=== PATIENT | female | born 1995 | race Caucasian/White ===

== ENCOUNTER 2018-07-21 14:54 | Inpatient (IN) | payer OTHER ==
[~2018-07-21 14:54] MED LIST: SEVOFLURANE 15 MIN
[2018-07-21] MEDS ORDERED: DOCUSATE SODIUM 100 MG CAP PO (16:00)
[2018-07-21] MEDS ORDERED: LORAZEPAM 2 MG INJ IV (16:00)
[2018-07-21] MEDS ORDERED: NA PHOSPHATE/BIPHOS 133 ML ENEMA PR (16:00)
[2018-07-21] MEDS ORDERED: MAGNESIUM HYDROXIDE 30ML CUP PO (16:00)
[2018-07-21] MEDS ORDERED: NACL 0.9% 3 ML SYG IV (16:00)
[2018-07-21] MEDS ORDERED: ACETAMINOPHEN 325 MG TAB PO (16:00)
[2018-07-21] MEDS ORDERED: ALBUTEROL/IPRATROPIUM (NEB) 3 ML AMP HHN (16:00)
[2018-07-21] MEDS ORDERED: NITROGLYCERIN (SL) 0.4 MG TAB SL (16:00)
[2018-07-21] MEDS ORDERED: hydrALAzine 20 MG INJ IV (16:00)
[2018-07-21] MEDS ORDERED: VANCOMYCIN IV PER PHARMACY XX (16:00)
[2018-07-21 16:30] LABS: INR 1.13; PROTIME 14.7 Sec (11.9-14.9); PT RATIO 1.1
[2018-07-21 16:31] LABS: PARTIAL THROMBOPLASTIN TIME 37.7 Sec (23.0-35.0)
[2018-07-21] MEDS: SOD CHLORIDE 0.9% 1,000 ML IV (16:41)
[2018-07-21 16:58] LABS: FREE T4 (FREE THYROXINE) 1.34 ng/dl (0.79-2.35)
[2018-07-21] MEDS: morphine 2 MG INJ IV (17:21)
[2018-07-21] MEDS: PIPER-TAZO 3.375 GM IV (PMX) 100 ML IVPB (17:21)
[2018-07-21] MEDS: VANCOMYCIN 1.5 GM in SOD CHLORIDE 0.9% 250 ML IVPB (18:09)
[2018-07-21] MEDS ORDERED: MIDAZOLAM 1 MG/ML 2 ML INJ (21:08)
[2018-07-21] MEDS ORDERED: FENTAnyl 50 MCG/ML VIAL (21:08)
[2018-07-21] MEDS ORDERED: LIDOCAINE 2% (SDV) 5 ML INJ (21:30)
[2018-07-21] MEDS ORDERED: PROPOFOL 20 ML (21:30)
[2018-07-21] MEDS: POLYMYXIN/BACITRACIN 1L IRRIG IRR (21:58)
[2018-07-21] MEDS ORDERED: FENTAnyl 50 MCG/ML VIAL IV (22:00)
[2018-07-21] MEDS ORDERED: METOCLOPRAMIDE 10 MG INJ IV (22:00)
[2018-07-21] MEDS ORDERED: MEPERIDINE 25 MG INJ IV (22:00)
[2018-07-21] MEDS ORDERED: HYDROmorphONE 1 MG/5 ML IV SYRINGE IV (22:00)
[2018-07-21] MEDS ORDERED: DIPHENHYDRAMINE 50 MG INJ IV (22:00)
[2018-07-21] MEDS ORDERED: KETOROLAC 30 MG INJ IV (22:00)
[2018-07-21] MEDS ORDERED: MIDAZOLAM 1 MG/ML 2 ML INJ IV (22:00)
[2018-07-21] MEDS: HYDROmorphONE 1 MG/5 ML IV SYRINGE IV ×2 (22:03→22:12)
[2018-07-21] MEDS: ONDANSETRON 4 MG INJ IV (22:03)
[2018-07-22] MEDS: PIPER-TAZO 3.375 GM IV (PMX) 100 ML IVPB ×5 (00:27→23:34)
[2018-07-22] MEDS: SOD CHLORIDE 0.9% 1,000 ML IV ×3 (01:12→18:17)
[2018-07-22] MEDS: morphine 2 MG INJ IV ×2 (01:36→05:57)
[2018-07-22] MEDS: VANCOMYCIN 1 GM 250 ML IVPB ×3 (02:00→18:15)
[2018-07-22] MEDS: PANTOPRAZOLE (EC) 40 MG TAB PO (05:57)
[2018-07-22] MEDS: ONDANSETRON 4 MG INJ IV (06:35)
[2018-07-22 07:20] LABS: ADD MAN DIFF? NO
[2018-07-22 07:28] LABS: BASOPHIL # 0.1 10^3/ul (0.0-0.1); BASOPHILS % 0.4 % (0.0-2.0); EOSINOPHILS # 0.1 10^3/ul (0.0-0.5); EOSINOPHILS % 0.7 % (0.0-7.0); HEMATOCRIT 34.1 % (37.0-47.0); HEMOGLOBIN 11.3 g/dl (12.0-16.0); LYMPHOCYTES # 2.3 10^3/ul (0.8-2.9); LYMPHOCYTES % 14.6 % (15.0-51.0); MEAN CORPUSCULAR HEMOGLOBIN 29.1 pg (29.0-33.0); MEAN CORPUSCULAR HGB CONC 33.1 g/dl (32.0-37.0); MEAN CORPUSCULAR VOLUME 87.9 fl (82.0-101.0); MEAN PLATELET VOLUME 10.9 fl (7.4-10.4); MONOCYTE # 1.4 10^3/ul (0.3-0.9); MONOCYTES % 8.8 % (0.0-11.0); NEUTROPHIL # 11.8 10^3/ul (1.6-7.5); NEUTROPHILS % 74.9 % (39.0-77.0); PLATELET COUNT 253 10^3/UL (140-415); RED BLOOD COUNT 3.88 10^6/ul (4.20-5.40); RED CELL DISTRIBUTION WIDTH 12.8 % (11.5-14.5)
[2018-07-22 07:28] LABS: WHITE BLOOD COUNT 15.7 10^3/ul (4.8-10.8)
[2018-07-22 07:40] LABS: ANION GAP 10 (5-13); BLOOD UREA NITROGEN 5 mg/dl (7-20); CALCIUM 8.4 mg/dl (8.4-10.2); CARBON DIOXIDE 24 mmol/L (21-31); CHLORIDE 105 mmol/L (97-110); CHOL/HDL RATIO 4.8 RATIO; CHOLESTEROL 131 mg/dl (100-200); CREATININE 0.59 mg/dl (0.44-1.00); Estimated GFR > 60 mL/min (>60); GLUCOSE 97 mg/dl (70-220); HDL CHOLESTEROL 27 mg/dl (33-83); LDL CHOLESTEROL,CALCULATED 83 mg/dl; MAGNESIUM 1.8 mg/dl (1.7-2.5); POTASSIUM 3.5 mmol/L (3.5-5.1); SODIUM 139 mmol/L (135-144); TRIGLYCERIDES 104 mg/dl (0-149)
[2018-07-22] MEDS: HYDROCODONE/APAP (5/325) TAB PO ×2 (10:53→17:06)
[2018-07-22 17:58] LABS: VANCOMYCIN,TROUGH 13.2 ug/ml (10.0-20.0)
[2018-07-23] MEDS: VANCOMYCIN 1 GM 250 ML IVPB ×3 (02:22→19:04)
[2018-07-23] MEDS: ONDANSETRON 4 MG INJ IV (04:07)
[2018-07-23] MEDS: HYDROCODONE/APAP (5/325) TAB PO ×3 (04:19→23:40)
[2018-07-23] MEDS: PANTOPRAZOLE (EC) 40 MG TAB PO (06:01)
[2018-07-23] MEDS: PIPER-TAZO 3.375 GM IV (PMX) 100 ML IVPB ×4 (06:01→23:04)
[2018-07-23] MEDS: SOD CHLORIDE 0.9% 1,000 ML IV ×3 (07:55→23:04)
[2018-07-23 08:59] LABS: ADD MAN DIFF? NO
[2018-07-23 09:03] LABS: HEMATOCRIT 33.4 % (37.0-47.0); LYMPHOCYTES % 18.8 % (15.0-51.0); MEAN CORPUSCULAR HGB CONC 32.9 g/dl (32.0-37.0); MEAN CORPUSCULAR VOLUME 88.1 fl (82.0-101.0); MEAN PLATELET VOLUME 10.9 fl (7.4-10.4); MONOCYTES % 9.7 % (0.0-11.0); NEUTROPHILS % 68.1 % (39.0-77.0); PLATELET COUNT 247 10^3/UL (140-415); RED BLOOD COUNT 3.79 10^6/ul (4.20-5.40); RED CELL DISTRIBUTION WIDTH 12.8 % (11.5-14.5)
[2018-07-23 09:03] LABS: WHITE BLOOD COUNT 9.7 10^3/ul (4.8-10.8)
[2018-07-23 09:04] LABS: BASOPHIL # 0.1 10^3/ul (0.0-0.1); BASOPHILS % 0.5 % (0.0-2.0); EOSINOPHILS # 0.2 10^3/ul (0.0-0.5); LYMPHOCYTES # 1.8 10^3/ul (0.8-2.9); MONOCYTE # 0.9 10^3/ul (0.3-0.9); NEUTROPHIL # 6.6 10^3/ul (1.6-7.5)
[2018-07-23 09:17] LABS: ANION GAP 8 (5-13); BLOOD UREA NITROGEN 6 mg/dl (7-20); CALCIUM 8.7 mg/dl (8.4-10.2); CARBON DIOXIDE 27 mmol/L (21-31); CHLORIDE 109 mmol/L (97-110); CREATININE 0.86 mg/dl (0.44-1.00); Estimated GFR > 60 mL/min (>60); GLUCOSE 87 mg/dl (70-220); POTASSIUM 3.5 mmol/L (3.5-5.1); SODIUM 144 mmol/L (135-144)
[2018-07-23 09:30] LABS: MAGNESIUM 2.1 mg/dl (1.7-2.5)
[2018-07-23 09:30] LABS: PHOSPHORUS 3.9 mg/dl (2.5-4.9)
[2018-07-23] MEDS: SODIUM HYPOCHLORITE (1/40) 1 APPLIC BTL IRR (23:40)
[2018-07-24] MEDS: VANCOMYCIN 1 GM 250 ML IVPB ×2 (02:22→10:49)
[2018-07-24] MEDS: PIPER-TAZO 3.375 GM IV (PMX) 100 ML IVPB (05:20)
[2018-07-24] MEDS: PANTOPRAZOLE (EC) 40 MG TAB PO (05:20)
[2018-07-24 06:19] LABS: ADD MAN DIFF? NO
[2018-07-24 06:31] LABS: BASOPHILS % 0.5 % (0.0-2.0); EOSINOPHILS # 0.2 10^3/ul (0.0-0.5); EOSINOPHILS % 3.1 % (0.0-7.0); HEMATOCRIT 35.1 % (37.0-47.0); HEMOGLOBIN 11.2 g/dl (12.0-16.0); LYMPHOCYTES # 1.9 10^3/ul (0.8-2.9); LYMPHOCYTES % 29.2 % (15.0-51.0); MEAN CORPUSCULAR HEMOGLOBIN 28.6 pg (29.0-33.0); MEAN CORPUSCULAR HGB CONC 31.9 g/dl (32.0-37.0); MEAN CORPUSCULAR VOLUME 89.8 fl (82.0-101.0); MEAN PLATELET VOLUME 11.1 fl (7.4-10.4); MONOCYTE # 0.7 10^3/ul (0.3-0.9); NEUTROPHIL # 3.7 10^3/ul (1.6-7.5); NEUTROPHILS % 56.1 % (39.0-77.0); PLATELET COUNT 233 10^3/UL (140-415); RED BLOOD COUNT 3.91 10^6/ul (4.20-5.40); RED CELL DISTRIBUTION WIDTH 12.8 % (11.5-14.5)
[2018-07-24 06:31] LABS: WHITE BLOOD COUNT 6.5 10^3/ul (4.8-10.8)
[2018-07-24 07:29] LABS: ANION GAP 11 (5-13); BLOOD UREA NITROGEN 4 mg/dl (7-20); CALCIUM 8.6 mg/dl (8.4-10.2); CARBON DIOXIDE 24 mmol/L (21-31); CHLORIDE 111 mmol/L (97-110); CREATININE 0.97 mg/dl (0.44-1.00); Estimated GFR > 60 mL/min (>60); GLUCOSE 82 mg/dl (70-220); POTASSIUM 3.5 mmol/L (3.5-5.1); SODIUM 146 mmol/L (135-144)
[2018-07-24] MEDS: ONDANSETRON 4 MG INJ IV (08:26)
[2018-07-24] MEDS: SODIUM HYPOCHLORITE (1/40) 1 APPLIC BTL IRR (10:52)
[2018-07-24] MEDS: SOD CHLORIDE 0.9% 1,000 ML IV (13:44)
[2018-07-24] MEDS: HYDROCODONE/APAP (5/325) TAB PO (13:46)
== END 2018-07-24 16:19 | disposition home or self-care (01) | DRG 854 ==
LOC: PP2 14:54
PROVIDERS: Internal Medicine
PROC: 0D9Q0ZZ Drainage of Anus, Open Approach (ICD-10-PCS; principal; 2018-07-21 20:50)
PROC: 0D9Q3ZX Drainage of Anus, Percutaneous Approach, Diagnostic (ICD-10-PCS; 2018-07-21 20:50)
PROC: 0DJD8ZZ Inspection of Lower Intestinal Tract, Via Natural or Artificial Opening Endoscopic (ICD-10-PCS; 2018-07-21 20:50)
DX: A41.9 Sepsis, unspecified organism (principal); K61.0 Anal abscess; L40.0 Psoriasis vulgaris; E66.9 Obesity, unspecified; B96.20 Unspecified Escherichia coli [E. coli] as the cause of diseases classified elsewhere; B95.4 Other streptococcus as the cause of diseases classified elsewhere; Z68.30 Body mass index [BMI] 30.0-30.9, adult; Z68.31 Body mass index [BMI] 31.0-31.9, adult
CPT/HCPCS: 80048; 80061; 80202; 83036; 83735; 84100; 84439; 84443; 85025; 85610; 85730; 87040; 87070

== ENCOUNTER 2018-08-15 01:16 | Inpatient (IN) | payer OTHER ==
[2018-08-15 03:48] LABS: ADD MAN DIFF? NO
[2018-08-15] MEDS: ONDANSETRON 4 MG INJ IV ×2 (03:52→12:43)
[2018-08-15] MEDS: morphine 4 MG/ML VIAL IV (03:53)
[2018-08-15] MEDS: SOD CHLORIDE 0.9% 500 ML IV (03:54)
[2018-08-15 04:32] LABS: BASOPHIL # 0.1 10^3/ul (0.0-0.1); BASOPHILS % 0.6 % (0.0-2.0); EOSINOPHILS # 0.2 10^3/ul (0.0-0.5); EOSINOPHILS % 1.9 % (0.0-7.0); HEMATOCRIT 36.8 % (37.0-47.0); HEMOGLOBIN 12.4 g/dl (12.0-16.0); LYMPHOCYTES # 2.8 10^3/ul (0.8-2.9); LYMPHOCYTES % 27.3 % (15.0-51.0); MEAN CORPUSCULAR HEMOGLOBIN 28.9 pg (29.0-33.0); MEAN CORPUSCULAR HGB CONC 33.7 g/dl (32.0-37.0); MEAN CORPUSCULAR VOLUME 85.8 fl (82.0-101.0); MEAN PLATELET VOLUME 11.7 fl (7.4-10.4); MONOCYTE # 0.7 10^3/ul (0.3-0.9); MONOCYTES % 6.7 % (0.0-11.0); NEUTROPHIL # 6.5 10^3/ul (1.6-7.5); PLATELET COUNT 236 10^3/UL (140-415); RED BLOOD COUNT 4.29 10^6/ul (4.20-5.40); RED CELL DISTRIBUTION WIDTH 13.3 % (11.5-14.5)
[2018-08-15 04:32] LABS: WHITE BLOOD COUNT 10.2 10^3/ul (4.8-10.8)
[2018-08-15 06:01] LABS: ANION GAP 9 (5-13); BLOOD UREA NITROGEN 10 mg/dl (7-20); CALCIUM 9.6 mg/dl (8.4-10.2); CARBON DIOXIDE 27 mmol/L (21-31); CHLORIDE 106 mmol/L (97-110); CREATININE 0.66 mg/dl (0.44-1.00); Estimated GFR > 60 mL/min (>60); GLUCOSE 93 mg/dl (70-220); POTASSIUM 3.7 mmol/L (3.5-5.1); SODIUM 142 mmol/L (135-144)
[2018-08-15] MEDS: IOHEXOL 100 ML (06:09)
[2018-08-15] MEDS: SOD CHLORIDE 0.9% 100 ML (06:09)
[2018-08-15] MEDS: HYDROCODONE/APAP (10/325) TAB PO (06:22)
[2018-08-15] MEDS ORDERED: ONDANSETRON 4 MG INJ IV (08:30)
[2018-08-15] MEDS ORDERED: ACETAMINOPHEN 325 MG TAB PO (09:30)
[2018-08-15] MEDS ORDERED: NACL 0.9% 3 ML SYG IV (09:30)
[2018-08-15] MEDS ORDERED: VANCOMYCIN IV PER PHARMACY XX (09:30)
[2018-08-15] MEDS: CEFTRIAXONE 1 GM/50 ML (PMX) 50 ML IVPB (10:11)
[2018-08-15 11:05] LABS: INR 0.97
[2018-08-15 11:06] LABS: PARTIAL THROMBOPLASTIN TIME 33.8 Sec (23.0-35.0)
[2018-08-15] MEDS: VANCOMYCIN 1.5 GM in SOD CHLORIDE 0.9% 250 ML IVPB (12:14)
[2018-08-15] MEDS: HYDROCODONE/APAP (5/325) TAB PO ×2 (14:43→21:32)
[2018-08-15] MEDS: VANCOMYCIN 1 GM 250 ML IVPB (20:21)
[2018-08-16] MEDS: VANCOMYCIN 1 GM 250 ML IVPB ×2 (04:29→12:00)
[2018-08-16] MEDS: HYDROCODONE/APAP (5/325) TAB PO ×2 (04:31→14:55)
[2018-08-16 05:06] LABS: ADD MAN DIFF? NO
[2018-08-16 05:15] LABS: WHITE BLOOD COUNT 7.8 10^3/ul (4.8-10.8)
[2018-08-16 05:15] LABS: BASOPHIL # 0.1 10^3/ul (0.0-0.1); BASOPHILS % 0.6 % (0.0-2.0); EOSINOPHILS # 0.2 10^3/ul (0.0-0.5); EOSINOPHILS % 2.8 % (0.0-7.0); HEMATOCRIT 33.3 % (37.0-47.0); HEMOGLOBIN 11.3 g/dl (12.0-16.0); LYMPHOCYTES % 25.9 % (15.0-51.0); MEAN CORPUSCULAR HEMOGLOBIN 29.1 pg (29.0-33.0); MEAN CORPUSCULAR HGB CONC 33.9 g/dl (32.0-37.0); MEAN CORPUSCULAR VOLUME 85.8 fl (82.0-101.0); MEAN PLATELET VOLUME 11.6 fl (7.4-10.4); MONOCYTE # 0.6 10^3/ul (0.3-0.9); MONOCYTES % 7.6 % (0.0-11.0); NEUTROPHIL # 4.9 10^3/ul (1.6-7.5); NEUTROPHILS % 62.6 % (39.0-77.0); PLATELET COUNT 188 10^3/UL (140-415); RED BLOOD COUNT 3.88 10^6/ul (4.20-5.40); RED CELL DISTRIBUTION WIDTH 13.2 % (11.5-14.5)
[2018-08-16 06:05] LABS: ALANINE AMINOTRANSFERASE 27 IU/L (13-69); ALBUMIN 3.5 g/dl (3.3-4.9); ALKALINE PHOSPHATASE 88 IU/L (42-121); ANION GAP 8 (5-13); ASPARTATE AMINO TRANSFERASE 23 IU/L (15-46); BILIRUBIN,INDIRECT 0.7 mg/dl (0-1.1); BILIRUBIN,TOTAL 0.7 mg/dl (0.2-1.3); BLOOD UREA NITROGEN 8 mg/dl (7-20); CALCIUM 8.8 mg/dl (8.4-10.2); CARBON DIOXIDE 26 mmol/L (21-31); CHLORIDE 104 mmol/L (97-110); Estimated GFR > 60 mL/min (>60); GLUCOSE 86 mg/dl (70-220); MAGNESIUM 1.8 mg/dl (1.7-2.5); PHOSPHORUS 4.1 mg/dl (2.5-4.9); POTASSIUM 3.6 mmol/L (3.5-5.1); SODIUM 138 mmol/L (135-144); TOTAL PROTEIN 6.4 g/dl (6.1-8.1)
[2018-08-16] MEDS ORDERED: EPHEDrine SULFATE 50 MG/5 ML SYG (07:00)
[2018-08-16] MEDS ORDERED: SEVOFLURANE 15 MIN (07:00)
[2018-08-16] MEDS: CEFTRIAXONE 1 GM/50 ML (PMX) 50 ML IVPB (10:23)
[2018-08-16 10:55] LABS: HEMOGLOBIN A1C 5.1 % (0-5.9)
[2018-08-16 11:33] LABS: VANCOMYCIN,TROUGH 18.4 ug/ml (10.0-20.0)
[2018-08-16] MEDS: VANCOMYCIN 1.25 GM in SOD CHLORIDE 0.9% 250 ML IVPB (16:00)
[2018-08-16] MEDS: SODIUM HYPOCHLORITE (1/40) 1 APPLIC BTL IRR (18:43)
[2018-08-16] MEDS ORDERED: MEPERIDINE 25 MG INJ IV (23:00)
[2018-08-16] MEDS ORDERED: FENTAnyl 50 MCG/ML VIAL IV ×3 (23:00)
[2018-08-16] MEDS ORDERED: PROCHLORPERAZINE 10 MG INJ IV (23:00)
[2018-08-16] MEDS ORDERED: DIPHENHYDRAMINE 50 MG INJ IV (23:00)
[2018-08-16] MEDS ORDERED: ONDANSETRON 4 MG INJ IV (23:00)
[2018-08-16] MEDS ORDERED: HYDROmorphONE 1 MG/5 ML IV SYRINGE IV ×2 (23:00)
[2018-08-16] MEDS ORDERED: PROPOFOL 20 ML (23:01)
[2018-08-16] MEDS ORDERED: LIDOCAINE 2% (SDV) 5 ML INJ (23:01)
[2018-08-16] MEDS ORDERED: MIDAZOLAM 1 MG/ML 2 ML INJ (23:02)
[2018-08-16] MEDS ORDERED: FENTAnyl 50 MCG/ML VIAL (23:11)
[2018-08-16] MEDS ORDERED: ONDANSETRON 4 MG INJ (23:25)
[2018-08-16] MEDS ORDERED: DEXAMETHASONE 4 MG/ML 1 ML INJ (23:25)
[2018-08-16] MEDS ORDERED: FAMOTIDINE 20 MG INJ (23:25)
[2018-08-16] MEDS ORDERED: KETOROLAC 30 MG INJ (23:46)
[2018-08-17] MEDS: HYDROmorphONE 1 MG/5 ML IV SYRINGE IV (00:58)
[2018-08-17] MEDS: VANCOMYCIN 1.25 GM in SOD CHLORIDE 0.9% 250 ML IVPB (04:21)
[2018-08-17] MEDS: HYDROCODONE/APAP (5/325) TAB PO ×2 (06:02→11:36)
[2018-08-17 06:47] LABS: WHITE BLOOD COUNT 8.4 10^3/ul (4.8-10.8)
[2018-08-17 06:47] LABS: HEMOGLOBIN 11.3 g/dl (12.0-16.0); MEAN CORPUSCULAR HEMOGLOBIN 28.8 pg (29.0-33.0); MEAN CORPUSCULAR HGB CONC 33.2 g/dl (32.0-37.0); MEAN CORPUSCULAR VOLUME 86.5 fl (82.0-101.0); MEAN PLATELET VOLUME 11.5 fl (7.4-10.4); PLATELET COUNT 205 10^3/UL (140-415); RED BLOOD COUNT 3.93 10^6/ul (4.20-5.40); RED CELL DISTRIBUTION WIDTH 12.9 % (11.5-14.5)
[2018-08-17 06:58] LABS: ADD MAN DIFF? YES; POSITIVE DIFF @See below
[2018-08-17 07:48] LABS: ALANINE AMINOTRANSFERASE 25 IU/L (13-69); ALBUMIN 3.9 g/dl (3.3-4.9); ALBUMIN/GLOBULIN RATIO 1.21; ALKALINE PHOSPHATASE 94 IU/L (42-121); ANION GAP 11 (5-13); ASPARTATE AMINO TRANSFERASE 27 IU/L (15-46); BILIRUBIN,INDIRECT 0.5 mg/dl (0-1.1); BILIRUBIN,TOTAL 0.5 mg/dl (0.2-1.3); BLOOD UREA NITROGEN 9 mg/dl (7-20); CARBON DIOXIDE 23 mmol/L (21-31); CHLORIDE 104 mmol/L (97-110); CREATININE 0.54 mg/dl (0.44-1.00); Estimated GFR > 60 mL/min (>60); GLUCOSE 110 mg/dl (70-220); MAGNESIUM 1.8 mg/dl (1.7-2.5); POTASSIUM 4.2 mmol/L (3.5-5.1); SODIUM 138 mmol/L (135-144); TOTAL PROTEIN 7.1 g/dl (6.1-8.1)
[2018-08-17 08:49] LABS: BAND NEUTROPHILS #M 0.1 10^3/ul (0.0-0.6); BAND NEUTROPHILS % (M) 2 % (0-4); LYMPHOCYTES #M 0.5 10^3/ul (0.8-2.9); LYMPHOCYTES % (M) 7 % (15-51); MONOCYTES % (M) 1 % (0-11); PLATELET ESTIMATE NORMAL; REACTIVE LYMPHOCYTES% (M) 1 % (0-0); SEG NEUT #M 7.5 10^3/ul (1.6-7.5); SEGMENTED NEUTROPHILS (M) % 89 % (39-77)
[2018-08-17] MEDS: SODIUM HYPOCHLORITE (1/40) 1 APPLIC BTL IRR ×2 (09:00→13:59)
[2018-08-17] MEDS: CEFTRIAXONE 1 GM/50 ML (PMX) 50 ML IVPB (10:04)
[2018-08-17] MEDS ORDERED: morphine 2 MG INJ IV (12:00)
[2018-08-17] MEDS: morphine SULFATE/PF (2 MG/2 ML) SYG IV ×2 (13:59→14:01)
[2018-08-17] MEDS: PIPER-TAZO 3.375 GM IV (PMX) 100 ML IVPB ×2 (18:03→23:54)
[2018-08-17] MEDS: morphine LIQ (10 MG/5 ML) CUP PO (21:22)
[2018-08-18] MEDS: KETOROLAC 30 MG INJ IV (05:58)
[2018-08-18] MEDS: PIPER-TAZO 3.375 GM IV (PMX) 100 ML IVPB ×3 (05:58→18:23)
[2018-08-18 06:53] LABS: ADD MAN DIFF? NO
[2018-08-18 06:59] LABS: WHITE BLOOD COUNT 7.2 10^3/ul (4.8-10.8)
[2018-08-18 06:59] LABS: BASOPHIL # 0.1 10^3/ul (0.0-0.1); BASOPHILS % 0.7 % (0.0-2.0); EOSINOPHILS # 0.2 10^3/ul (0.0-0.5); EOSINOPHILS % 2.6 % (0.0-7.0); HEMATOCRIT 31.2 % (37.0-47.0); HEMOGLOBIN 10.4 g/dl (12.0-16.0); LYMPHOCYTES # 2.4 10^3/ul (0.8-2.9); LYMPHOCYTES % 32.6 % (15.0-51.0); MEAN CORPUSCULAR HGB CONC 33.3 g/dl (32.0-37.0); MEAN CORPUSCULAR VOLUME 86.9 fl (82.0-101.0); MEAN PLATELET VOLUME 11.4 fl (7.4-10.4); MONOCYTE # 0.6 10^3/ul (0.3-0.9); MONOCYTES % 8.9 % (0.0-11.0); NEUTROPHILS % 54.6 % (39.0-77.0); PLATELET COUNT 207 10^3/UL (140-415); RED BLOOD COUNT 3.59 10^6/ul (4.20-5.40); RED CELL DISTRIBUTION WIDTH 13.2 % (11.5-14.5)
[2018-08-18 07:42] LABS: ALANINE AMINOTRANSFERASE 27 IU/L (13-69); ALBUMIN 3.3 g/dl (3.3-4.9); ALBUMIN/GLOBULIN RATIO 1.13; ALKALINE PHOSPHATASE 85 IU/L (42-121); ANION GAP 9 (5-13); ASPARTATE AMINO TRANSFERASE 22 IU/L (15-46); BILIRUBIN,INDIRECT 0.4 mg/dl (0-1.1); BILIRUBIN,TOTAL 0.4 mg/dl (0.2-1.3); BLOOD UREA NITROGEN 11 mg/dl (7-20); CALCIUM 8.7 mg/dl (8.4-10.2); CARBON DIOXIDE 26 mmol/L (21-31); CHLORIDE 107 mmol/L (97-110); CREATININE 0.61 mg/dl (0.44-1.00); Estimated GFR > 60 mL/min (>60); GLUCOSE 93 mg/dl (70-220); MAGNESIUM 1.9 mg/dl (1.7-2.5); PHOSPHORUS 3.3 mg/dl (2.5-4.9); POTASSIUM 3.5 mmol/L (3.5-5.1); SODIUM 142 mmol/L (135-144); TOTAL PROTEIN 6.2 g/dl (6.1-8.1)
[2018-08-18] MEDS: SODIUM HYPOCHLORITE (1/40) 1 APPLIC BTL IRR (09:00)
[2018-08-18] MEDS: HYDROCODONE/APAP (5/325) TAB PO (11:54)
[2018-08-18] MEDS ORDERED: VANCOMYCIN IV PER PHARMACY XX (12:30)
[2018-08-18] MEDS: VANCOMYCIN 1.25 GM in SOD CHLORIDE 0.9% 250 ML IVPB (15:09)
[2018-08-18] MEDS: KETOROLAC 15 MG INJ IV (20:55)
[2018-08-19] MEDS: PIPER-TAZO 3.375 GM IV (PMX) 100 ML IVPB ×4 (00:08→17:57)
[2018-08-19] MEDS: SOD CHLORIDE 0.9% 1,000 ML IV (02:00)
[2018-08-19] MEDS: VANCOMYCIN 1.25 GM in SOD CHLORIDE 0.9% 250 ML IVPB (03:50)
[2018-08-19 05:35] LABS: ADD MAN DIFF? NO
[2018-08-19 05:55] LABS: WHITE BLOOD COUNT 5.8 10^3/ul (4.8-10.8)
[2018-08-19 05:55] LABS: BASOPHIL # 0.1 10^3/ul (0.0-0.1); BASOPHILS % 0.9 % (0.0-2.0); EOSINOPHILS # 0.3 10^3/ul (0.0-0.5); EOSINOPHILS % 4.5 % (0.0-7.0); HEMATOCRIT 31.2 % (37.0-47.0); HEMOGLOBIN 10.4 g/dl (12.0-16.0); LYMPHOCYTES # 2.3 10^3/ul (0.8-2.9); LYMPHOCYTES % 40.2 % (15.0-51.0); MEAN CORPUSCULAR HGB CONC 33.3 g/dl (32.0-37.0); MEAN CORPUSCULAR VOLUME 86.9 fl (82.0-101.0); MEAN PLATELET VOLUME 11.5 fl (7.4-10.4); MONOCYTE # 0.5 10^3/ul (0.3-0.9); NEUTROPHIL # 2.7 10^3/ul (1.6-7.5); NEUTROPHILS % 45.9 % (39.0-77.0); PLATELET COUNT 205 10^3/UL (140-415); RED BLOOD COUNT 3.59 10^6/ul (4.20-5.40); RED CELL DISTRIBUTION WIDTH 13.2 % (11.5-14.5)
[2018-08-19 06:37] LABS: ALANINE AMINOTRANSFERASE 24 IU/L (13-69); ALBUMIN 3.1 g/dl (3.3-4.9); ALKALINE PHOSPHATASE 87 IU/L (42-121); ANION GAP 3 (5-13); ASPARTATE AMINO TRANSFERASE 23 IU/L (15-46); BILIRUBIN,INDIRECT 0.1 mg/dl (0-1.1); BILIRUBIN,TOTAL 0.1 mg/dl (0.2-1.3); BLOOD UREA NITROGEN 6 mg/dl (7-20); CALCIUM 8.3 mg/dl (8.4-10.2); CARBON DIOXIDE 24 mmol/L (21-31); CHLORIDE 115 mmol/L (97-110); CREATININE 0.55 mg/dl (0.44-1.00); Estimated GFR > 60 mL/min (>60); GLUCOSE 93 mg/dl (70-220); MAGNESIUM 1.7 mg/dl (1.7-2.5); PHOSPHORUS 3.6 mg/dl (2.5-4.9); POTASSIUM 3.8 mmol/L (3.5-5.1); SODIUM 142 mmol/L (135-144); TOTAL PROTEIN 6.2 g/dl (6.1-8.1)
[2018-08-19] MEDS ORDERED: LIDOCAINE 2% JELLY 30 ML TOP (12:00)
[2018-08-19] MEDS: HYDROCODONE/APAP (5/325) TAB PO (12:04)
[2018-08-19] MEDS: SODIUM HYPOCHLORITE (1/40) 1 APPLIC BTL IRR (12:07)
[2018-08-19] MEDS: KETOROLAC 15 MG INJ IV (22:18)
[2018-08-19] MEDS: LIDOCAINE 2% JEL.PF.APP 5 ML UROJET SYRINGE MM (22:52)
[2018-08-20] MEDS: PIPER-TAZO 3.375 GM IV (PMX) 100 ML IVPB ×3 (00:30→12:30)
[2018-08-20 05:43] LABS: ADD MAN DIFF? NO
[2018-08-20 05:45] LABS: WHITE BLOOD COUNT 5.9 10^3/ul (4.8-10.8)
[2018-08-20 05:45] LABS: BASOPHIL # 0.1 10^3/ul (0.0-0.1); EOSINOPHILS # 0.3 10^3/ul (0.0-0.5); EOSINOPHILS % 4.6 % (0.0-7.0); HEMATOCRIT 33.7 % (37.0-47.0); HEMOGLOBIN 11.3 g/dl (12.0-16.0); LYMPHOCYTES # 2.1 10^3/ul (0.8-2.9); LYMPHOCYTES % 35.5 % (15.0-51.0); MEAN CORPUSCULAR HEMOGLOBIN 29.4 pg (29.0-33.0); MEAN CORPUSCULAR HGB CONC 33.5 g/dl (32.0-37.0); MEAN CORPUSCULAR VOLUME 87.5 fl (82.0-101.0); MEAN PLATELET VOLUME 11.4 fl (7.4-10.4); MONOCYTE # 0.4 10^3/ul (0.3-0.9); MONOCYTES % 7.2 % (0.0-11.0); NEUTROPHILS % 51.4 % (39.0-77.0); PLATELET COUNT 218 10^3/UL (140-415); RED BLOOD COUNT 3.85 10^6/ul (4.20-5.40)
[2018-08-20 06:39] LABS: ALANINE AMINOTRANSFERASE 25 IU/L (13-69); ALBUMIN 3.7 g/dl (3.3-4.9); ALBUMIN/GLOBULIN RATIO 1.27; ALKALINE PHOSPHATASE 91 IU/L (42-121); ANION GAP 11 (5-13); ASPARTATE AMINO TRANSFERASE 29 IU/L (15-46); BILIRUBIN,INDIRECT 0.1 mg/dl (0-1.1); BILIRUBIN,TOTAL 0.1 mg/dl (0.2-1.3); BLOOD UREA NITROGEN 8 mg/dl (7-20); CALCIUM 9.1 mg/dl (8.4-10.2); CARBON DIOXIDE 24 mmol/L (21-31); CHLORIDE 107 mmol/L (97-110); CREATININE 0.61 mg/dl (0.44-1.00); Estimated GFR > 60 mL/min (>60); GLUCOSE 90 mg/dl (70-220); MAGNESIUM 1.9 mg/dl (1.7-2.5); PHOSPHORUS 4.7 mg/dl (2.5-4.9); POTASSIUM 3.7 mmol/L (3.5-5.1); SODIUM 142 mmol/L (135-144); TOTAL PROTEIN 6.6 g/dl (6.1-8.1)
[2018-08-20] MEDS: KETOROLAC 15 MG INJ IV (09:44)
[2018-08-20] MEDS: SODIUM HYPOCHLORITE (1/40) 1 APPLIC BTL IRR (09:44)
[2018-08-20] MEDS: LIDOCAINE 2% JEL.PF.APP 5 ML UROJET SYRINGE MM (09:44)
== END 2018-08-20 14:30 | disposition home or self-care (01) | DRG 357 ==
LOC: E/R 01:16 → PP2 08:26
PROC: 0JB90ZZ Excision of Buttock Subcutaneous Tissue and Fascia, Open Approach (ICD-10-PCS; principal; 2018-08-16 18:00)
DX: K61.0 Anal abscess (principal); L03.317 Cellulitis of buttock; J45.909 Unspecified asthma, uncomplicated; L40.9 Psoriasis, unspecified; D64.9 Anemia, unspecified; E66.9 Obesity, unspecified; Z68.30 Body mass index [BMI] 30.0-30.9, adult; A49.01 Methicillin susceptible Staphylococcus aureus infection, unspecified site
CPT/HCPCS: 36415; 74177; 80048; 80053; 80202; 81025; 83036; 83735; 84100; 84703; 85025; 85610; 85730; 87040; 87070; 87081; 96374; 99285-25; G0378

== ENCOUNTER 2018-09-22 11:30 | Emergency (ER) | payer OTHER | END 2018-09-22 13:55 | disposition home or self-care (01) | LOC: FTE 11:30 | DX: S31.829A Unspecified open wound of left buttock, initial encounter (principal); J45.909 Unspecified asthma, uncomplicated; L08.9 Local infection of the skin and subcutaneous tissue, unspecified; X58.XXXA Exposure to other specified factors, initial encounter; Y92.9 Unspecified place or not applicable; Z48.817 Encounter for surgical aftercare following surgery on the skin and subcutaneous tissue | CPT/HCPCS: 99283; Z7502 ==

== ENCOUNTER 2018-11-12 09:28 | Day surgery (SDC) | payer OTHER ==
[2018-11-12] MEDS ORDERED: BUPIVACAINE 0.5% (SDV) 30 ML INJ (11:16)
[2018-11-12] MEDS ORDERED: BUPIVACAINE 0.25% (MPF) 30 ML INJ (11:16)
[2018-11-12] MEDS ORDERED: PROPOFOL 100 ML (11:31)
[2018-11-12] MEDS ORDERED: DEXAMETHASONE 4 MG/ML 5 ML INJ (12:00)
[2018-11-12] MEDS ORDERED: ONDANSETRON 4 MG INJ (12:00)
[2018-11-12] MEDS: BUPIVACAINE 0.5%/EPI (SDV) 30 ML INJ (12:12)
[2018-11-12] MEDS: LIDOCAINE 1% (MPF) 30 ML INJ (12:12)
[2018-11-12] MEDS ORDERED: ONDANSETRON 4 MG INJ IV (13:00)
[2018-11-12] MEDS ORDERED: FENTAnyl 50 MCG/ML VIAL IV ×2 (13:00)
[2018-11-12] MEDS ORDERED: KETOROLAC 30 MG INJ IV (13:00)
[2018-11-12] MEDS ORDERED: hydrALAzine 20 MG INJ IV (13:00)
[2018-11-12] MEDS ORDERED: METOCLOPRAMIDE 10 MG INJ IV (13:00)
[2018-11-12] MEDS ORDERED: LABETALOL HCL 20MG INJ IV (13:00)
[2018-11-12] MEDS ORDERED: HYDROmorphONE 1 MG/5 ML IV SYRINGE IV ×3 (13:00)
[2018-11-12] MEDS ORDERED: OXYCODONE/ACETAMINOPHEN (5/325) TAB PO ×2 (13:00)
[2018-11-12] MEDS ORDERED: DIPHENHYDRAMINE 50 MG INJ IV (13:00)
[2018-11-12] MEDS ORDERED: EPHEDrine SULFATE 50 MG/5 ML SYG IV (13:00)
[2018-11-12] MEDS ORDERED: MEPERIDINE 25 MG INJ IV (13:00)
[2018-11-12] MEDS ORDERED: ALBUTEROL 0.5% (NEB) 2.5 MG/0.5 ML AMP (13:23)
[2018-11-12] MEDS ORDERED: MIDAZOLAM 1 MG/ML 2 ML INJ (13:24)
[2018-11-12] MEDS: ALBUTEROL 0.083% (NEB) 2.5 MG/3 ML AMP HHN (13:45)
[2018-11-12] MEDS ORDERED: IPRATROPIUM (NEB) 0.5 MG/2.5 ML AMP INH (14:00)
[2018-11-12] MEDS: MIDAZOLAM 1 MG/ML 2 ML INJ IV (15:01)
[2018-11-12] MEDS: FENTAnyl 50 MCG/ML VIAL IV (15:02)
[2018-11-12] MEDS ORDERED: DEXAMETHASONE 4 MG/ML 1 ML INJ (15:34)
[2018-11-12] MEDS: DEXAMETHASONE 4 MG/ML 1 ML INJ IV (16:07)
[2018-11-12] MEDS ORDERED: DEXAMETHASONE 10 MG/ML 1 ML INJ IV (17:00)
== END 2018-11-12 18:53 | disposition home or self-care (01) ==
LOC: SDS 09:28
DX: K60.3 Anal fistula (principal); J45.909 Unspecified asthma, uncomplicated
CPT/HCPCS: 45300; 84703; 88304

== ENCOUNTER 2019-02-10 14:20 | Day surgery (SDC) | payer OTHER ==
[2019-02-10] MEDS: Metronidazole 500 MG in NS 100 ML IVPB (10:00)
[2019-02-10] MEDS: CEFAZOLIN 2 GM/50 ML (PMX) 50 ML IVPB (10:00)
[2019-02-10] MEDS ORDERED: ONDANSETRON 4 MG INJ IV (14:21)
[2019-02-10] MEDS ORDERED: DEXAMETHASONE 4 MG/ML 5 ML INJ IVPB (14:21)
[2019-02-10] MEDS: LACTATED RINGER'S 1,000 ML IV ×2 (15:22→17:49)
[2019-02-10] MEDS ORDERED: PROPOFOL 20 ML (16:28)
[2019-02-10] MEDS ORDERED: FENTAnyl 50 MCG/ML VIAL ×2 (16:29)
[2019-02-10] MEDS: LIDOCAINE 1%/EPI 30 ML INJ (16:58)
[2019-02-10] MEDS: BUPIVACAINE 0.5% (SDV) 30 ML INJ (16:58)
[2019-02-10] MEDS ORDERED: LIDOCAINE 2% (SDV) 5 ML INJ (17:23)
[2019-02-10] MEDS ORDERED: CEFAZOLIN 1 GM INJ (17:23)
[2019-02-10] MEDS ORDERED: metroNIDAZOLE 500 MG/NS (PMX) 100 ML IVPB (17:24)
[2019-02-10] MEDS ORDERED: ROCURONIUM 50 MG INJ (17:24)
[2019-02-10] MEDS ORDERED: NEOSTIGMINE 3 MG/3 ML SYRINGE (17:28)
[2019-02-10] MEDS ORDERED: GLYCOPYRROLATE 0.4 MG INJ (17:28)
[2019-02-10] MEDS ORDERED: MEPERIDINE 25 MG INJ (17:40)
[2019-02-10] MEDS: MEPERIDINE 25 MG INJ IV (17:49)
[2019-02-10] MEDS ORDERED: KETOROLAC 30 MG INJ IV (18:00)
[2019-02-10] MEDS ORDERED: EPHEDrine 25 MG/5 ML SYG IV (18:00)
[2019-02-10] MEDS ORDERED: HYDROmorphONE 1 MG/5 ML IV SYRINGE IV ×3 (18:00)
[2019-02-10] MEDS ORDERED: OXYCODONE/ACETAMINOPHEN (5/325) TAB PO ×2 (18:00)
[2019-02-10] MEDS ORDERED: FENTAnyl 50 MCG/ML VIAL IV ×3 (18:00)
[2019-02-10] MEDS ORDERED: ALBUTEROL 0.083% (NEB) 2.5 MG/3 ML AMP HHN (18:00)
[2019-02-10] MEDS ORDERED: LABETALOL HCL 20MG INJ IV (18:00)
[2019-02-10] MEDS ORDERED: MIDAZOLAM 1 MG/ML 2 ML INJ IV (18:00)
[2019-02-10] MEDS ORDERED: DIPHENHYDRAMINE 50 MG INJ IV (18:00)
[2019-02-10] MEDS ORDERED: hydrALAzine 20 MG INJ IV (18:00)
[2019-02-10] MEDS: ONDANSETRON 4 MG INJ IV (18:05)
[2019-02-10] MEDS: METOCLOPRAMIDE 10 MG INJ IV (18:42)
== END 2019-02-10 19:26 | disposition home or self-care (01) ==
LOC: SDS 14:20
DX: K60.3 Anal fistula (principal); J45.909 Unspecified asthma, uncomplicated
CPT/HCPCS: 46020; 88304